=== PATIENT | female | born 1975 | race Caucasian/White ===

== ENCOUNTER 2020-11-11 09:22 | Outpatient (CLI) | payer BC ==
[2020-11-11 13:01] LABS: BASOPHILS # (AUTO) 0.1 10^3/uL (0.0-0.1); BASOPHILS % (AUTO) 0.9 %; EOSINOPHILS # (AUTO) 0.2 10^3/uL (0.0-0.7); EOSINOPHILS % (AUTO) 3.6 %; HCT - HEMATOCRIT 43.7 % (37.0-47.0); HGB - HEMOGLOBIN 14.7 g/dL (12.0-16.0); LYMPHOCYTES # (AUTO) 1.8 10^3/uL (1.5-3.5); MEAN CORPUSCULAR HEMOGLOBIN 29.9 pg (27.0-31.0); MEAN CORPUSCULAR HGB CONC 33.6 g/dL (32.0-36.0); MEAN PLATELET VOLUME 10.7 fL (7.9-10.8); MONOCYTES # (AUTO) 0.3 10^3/uL (0.0-1.0); MONOCYTES % (AUTO) 5.8 %; NEUTROPHILS # (AUTO) 3.5 10^3/uL (1.5-6.6); NEUTROPHILS % (AUTO) 59.5 %; PLT - PLATELET COUNT 360 10^3/uL (130-450); RED BLOOD COUNT 4.91 10^6/uL (4.20-5.40); RED CELL DISTRIBUTION WIDTH 13.2 % (12.0-15.0); WHITE BLOOD COUNT 5.8 x10^3/uL (4.8-10.8)
[2020-11-11 13:03] LABS: ALBUMIN 4.2 g/dL (3.2-5.5); ALBUMIN/GLOBULIN RATIO 1.4 (1.0-2.2); ALKALINE PHOSPHATASE 56 IU/L (42-121); ALT ALANINE AMINOTRANSFERASE 25 IU/L (10-60); AST ASPARTATE AMINOTRANSFERASE 24 IU/L (10-42); BILIRUBIN,TOTAL 0.6 mg/dL (0.2-1.0); BUN - BLOOD UREA NITROGEN 20 mg/dL (6-20); CALCIUM 9.5 mg/dL (8.5-10.3); CARBON DIOXIDE - CO2 27 mmol/L (21-32); CHLORIDE 102 mmol/L (101-111); CHOLESTEROL 173 mg/dL; GFR - MDRD 60 (>89); GLUCOSE 98 mg/dL (70-100); HDL CHOLESTEROL 43 mg/dL; LDL CHOLESTEROL,CALCULATED 115 mg/dL; LDL/HDL RATIO 2.7 (<4.4); POTASSIUM 4.2 mmol/L (3.5-5.0); SODIUM 137 mmol/L (135-145); TOTAL PROTEIN 7.1 g/dL (6.7-8.2); TRIGLYCERIDES 74 mg/dL; VLDL CHOLESTEROL 15 mg/dL
[2020-11-11 13:29] LABS: THYROID STIMULATING HORMONE 1.38 uIU/mL (0.34-5.60)
[2020-11-12 07:16] LABS: PROGESTERONE <0.5 ng/mL
[2020-11-12 07:32] LABS: ESTRADIOL 195 pg/mL
== END 2020-11-11 23:59 | disposition home or self-care (01) ==
LOC: LAB.WCP 09:22
PROVIDERS: ATTEND Nurse Practitioner Family
DX: Z00.00 Encounter for general adult medical examination without abnormal findings (principal); R68.82 Decreased libido
CPT/HCPCS: 36415; 80053; 80061; 82670; 83721; 84144; 84443; 85025

== ENCOUNTER 2020-11-21 14:52 | Outpatient (CLI) | payer BC ==
--- NOTE | 2020-11-22 11:43 | Mammography Report ---
BILATERAL DIGITAL SCREENING MAMMOGRAM 3D/2D: 11/21/2020 CLINICAL: Routine screening. Baseline exam. No prior exams were available for comparison. The tissue of both breasts is heterogeneously dense. T his may lower the sensitivity of mammography. There are well circumscribed asymetries likely benign cysts in both breasts. No significant masses, calcifications, or other findings are seen in either breast. IMPRESSION: BENIGN There is no mammographic evidence of malignancy. A 1 year screening mammogram is recommended. This exam was interpreted at Station ID: [id number]. NOTE: For mammograms, a report in lay terms will be sent to the patient. Approximately 15% of breast malignancies will not be visualized mammographically. In the management of a palpable breast mass, a negative mammogram must not discourage biopsy of a clinically suspicious lesion. Electronically Signed By: Sj Silver acr/:11/21/2020 16:07:29 ACR BI-RADS Category 2: Benign Finding(s) 3342F PARENCHYMAL PATTERN: (D) - The breast(s) demonstrate(s) heterogeneously dense fibroglandular jalil stafford. BI-RADS CATEGORY: (2) - 2 RECOMMENDATION: (ANNUAL) - Recommend routine annual screening mammography. [id number] 1 year screening LATERALITY: (B)
== END 2020-11-21 14:53 | disposition home or self-care (01) ==
LOC: DI.N 14:52
DX: Z12.31 Encounter for screening mammogram for malignant neoplasm of breast (principal)

== ENCOUNTER 2021-06-05 10:56 | Outpatient (CLI) | payer OTHER, BC ==
--- NOTE | 2021-06-05 15:10 | XRAY Report ---
PROCEDURE: Lumbar Spine Complete INDICATIONS: LOW BACK PAIN/STRAIN TECHNIQUE: 5 views of the lumbar spine were acquired. COMPARISON: None. FINDINGS: Bones: 5 [id number] vertebrae are present. There is trace retrolisthesis of L1 on L2, L2 on L3 , L3 on L4. There is moderate disc and mild foraminal narrowing at L5-S1. No vertebral body compressi on fractures. No suspicious bony lesions. Soft tissues: Overlying bowel gas pattern is normal. No suspicious soft tissue calcifications. IMPRESSION: Early degenerative changes most notable at L5-S1. Reviewed by: Jaelyn Wiggins MD on 06/05/2021 3:09 PM PDT Approved by: Jaelyn Wiggins MD on 06/05/2021 3:09 PM PDT Station ID: [id number]
== END 2021-06-05 23:59 | disposition home or self-care (01) ==
LOC: DI.N 10:56
PROVIDERS: ATTEND Family Medicine
DX: M47.817 Spondylosis without myelopathy or radiculopathy, lumbosacral region (principal); M47.816 Spondylosis without myelopathy or radiculopathy, lumbar region

== ENCOUNTER 2023-10-20 15:55 | Outpatient (CLI) | payer BC ==
--- NOTE | 2023-10-20 16:34 | Sleep Patient Instructions ---
Sleep Center Visit Summary - Patient Visit Information Reason for Visit: Initial consult for evaluation of sleep disordered breathing and other sleep issues. - Patient Instructions Instructions Attached: Sleep Study Home Monitor, Sleep Study Additional Instructions: You will be completing a sleep study, either an in-lab polysomnography (PSG) or home sleep study (HST). You will follow-up in the sleep care office after the sleep study is completed to hear the results and talk about therapy, if needed. You will be called by our office staff to schedule this appointment, but you may contact us with any questions. - Clinic Information Contact: [facility] [address] [place] [id number] [email or web address] T: [phone]
--- NOTE | 2023-10-20 16:38 | SLEEP CARE CONSULTATION ---
Information from patient questionnaire entered by Alcira Farfan. I have reviewed and concur with the information entered by Alcira Farfan. This document represents the service I personally performed and the decisions made by me, Kim Doan ARNP. History of Present Illness Service Date and Time: 10/20/2023 1555 Reason for Visit: New patient Chief Complaint: reports: Insomnia, Unrefreshed sleep, Snoring, Excessive daytime sleepiness, Fatigue, Frequent awakenings at night Date of Onset: A LONG TIME Usual bedtime: 10-11PM Time it takes to fall asleep: 10MINS Snores at night: Yes Observed to quit breathing while asleep: No Sleeps alone due to snoring: No Number of times waking at night: 5+ Reasons for waking at night: reports: Choking (due to reflux), Pain, Bathroom, Other (UNKNOWN). denies: Snoring, Gasping for air Toss, Turn, or Twitch while sleeping: Yes Recalls having dreams: Yes (has very vivid dreams) Usually gets out of bed at: 6-630AM; weekends 7-8 AM Feels refreshed in the morning: No Morning headache: Yes (daily; some day gone by 9-10 AM, other last all day) Sleepy or fatigued during the day: Yes (some unintentional naps) Ever fallen asleep while driving: Yes (drowsy driving; no accidents) Takes day naps: No Prior sleep studies: No Additional HPI information: I had the pleasure of seeing RAUL DENNISON today regarding the possibility of her having a sleep disorder. Her current complaints are insomnia, unrefreshed sleep, snoring, excessive daytime sleepiness, fatigue and frequent night awakenings. She says she is always tired and has a hard time staying awake on her way home from work. She is very fatigued and has not energy to do things. She used to sleep well until after her disabled daughter was born. Her daughter 5 years ago, but she is still not sleeping well. She says she is snoring. Her mother says she snores loudly. She has restless legs at night and is awakening frequently. - Parasomnia Symptoms Ever been unable to move upon waking from sleep: No (maybe, not scary) Walks in sleep: No Talks in sleep: Yes Ever acted out dreams in sleep: No Ever felt weak in the knees when startled or emotional: Yes (feels a little off balance; has not fallen to ground) Bothered by creepy, crawly, restless sensations in legs: Yes (mainly at night, most nights; more tired, sooner they start) Problems with memory or concentration: Yes (both, always had bad memory and AD HD) Subjective Initial [place] Sleepiness Scale score: 15 (10/17/29) Past Medical History Past Medical History: reports: Dysphagia, Claustrophobia, Arthritis, Anxiety, GERD, Attention deficit, Other (MIRAINES, RESTLESS LEGS, URINARY INCONTINENCE) Social History 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 Patient is and lives in [place]. Have you smoked in the past 12 months: No Alcohol use: Yes Alcohol amount and frequency: OCASSIONALLY Caffeine use: Yes Caffeine amount and frequency: 1 1-2 X WEEK Family History Family history of sleep disordered breathing: Yes Family Hx Sleep Apnea: Mother: Snoring, Father: Snoring Allergies and Home Medications Known drug allergies: No Drug allergies reviewed: Yes Home medication list reviewed: Yes (as listed) Allergy and home medication list: Home Medications Medication Instructions Recorded Confirmed Last Taken Type Ergocalciferol (Vitamin D2) See Rx Instructions .ROUTE .COMPLEX 10/20/23 10/20/23 Unknown History [Drisdol] Mecobalamin [B12 Active] See Rx Instructions .ROUTE .COMPLEX 10/20/23 10/20/23 Unknown History Melatonin/Pyridoxine [Melatonin 5 See Rx Instructions .ROUTE .COMPLEX 10/20/23 10/20/23 Unknown History mg Tablet] Meloxicam See Rx Instructions .ROUTE .COMPLEX 10/20/23 10/20/23 Unknown History Norethindrone-E.estradiol-Iron See Rx Instructions .ROUTE .COMPLEX 10/20/23 10/20/23 Unknown History [Brody 24 Fe 1 mg-20 Mcg Tablet] Omeprazole Magnesium See Rx Instructions .ROUTE .COMPLEX 10/20/23 10/20/23 Unknown History Ondansetron [Ondansetron Odt] See Rx Instructions .ROUTE .COMPLEX 10/20/23 10/20/23 Unknown History Propranolol HCl [Inderal Xl] See Rx Instructions .ROUTE .COMPLEX 10/20/23 10/20/23 Unknown History Tolterodine Tartrate [Tolterodine See Rx Instructions .ROUTE .COMPLEX 10/20/23 10/20/23 Unknown History Tartrate ER] Venlafaxine [Effexor] See Rx Instructions .ROUTE .COMPLEX 10/20/23 10/20/23 Unknown History Viloxazine HCl [Qelbree] See Rx Instructions .ROUTE .COMPLEX 10/20/23 10/20/23 Unknown History hydrOXYzine HCL [Hydroxyzine HCl] See Rx Instructions .ROUTE .COMPLEX 10/20/23 10/20/23 Unknown History rOPINIRole [Requip] See Rx Instructions .ROUTE .COMPLEX 10/20/23 10/20/23 Unknown History traZODone [Desyrel] See Rx Instructions .ROUTE .COMPLEX 10/20/23 10/20/23 Unknown History Review of Systems Weight loss over past 5 years: 40 Cardiovascular: denies: high blood pressure Respiratory: denies: shortness of breath Gastrointestinal: reports: heartburn, difficulty swallowing, nausea, diarrhea, abdominal pain Urinary: reports: incontinence Neurological: reports: headaches, gait or balance problems, other (DIZZINESS). denies: head trauma Psychiatric: reports: Attention Deficit Hyperactivity, anxiety, claustrophobia Ear/Nose/Throat: reports: dry mouth/throat, wisdom teeth removed. denies: injury to nose, tonsillectomy Endocrine: reports: sluggishness Musculoskeletal: reports: joint pain, back pain, muscle pain or cramping, mobility problems Physical Exam Vital signs obtained and entered by: ALCIRA Woods MA Blood Pressure: 116/77 (RIGHT) Cuff size: wrist Heart Rate: 71 O2 Saturation: 100 Height: 5 ft 4 in Weight: 245 lb 12.8 oz Body Mass Index: 42.2 BMI Classification: Morbidly Obese Neck circumference: 18 Mouth and throat: narrow oropharynx Soft palate: long Hard palate: normal Uvula: normal Uvula visualization: 25% Mallampati Class III Tongue: enlarged in size with teeth ceron on lateral edges Tonsils: 1+ Neck: normal w/o lymphadenopathy or thyromegaly Heart: regular rate and rhythm Lungs: clear bilaterally Impression and Plan 1. Suspected Obstructive Sleep Apnea-Hypopnea Syndrome, as suggested by a history of loud and irregular snoring, gasping or choking in sleep, morning headache, frequent awakening during the night, unrefreshed sleep, cognitive impairment, and excessive daytime sleepiness. Narrow oropharynx and obesity are common predisposing factors for obstructive sleep apnea-hypopnea syndrome. I recommend proceeding to polysomnography to confirm the diagnosis and to assess severity. If the patient has significant sleep disordered breathing, a manual CPAP titration study will also be performed to find the optimal treatment pressure. I informed the patient of what the sleep studies involve and after some discussion, obtained agreement to proceed. The pathophysiology of obstructive sleep apnea-hypopnea syndrome was discussed with the patient and health risks of cardiovascular and cerebrovascular disease if not treated. Risks of drowsy driving discussed in detail and patient advised to avoid long distance driving and to assembler for puller over hand at the first sign of drowsiness. Patient agreed to plan. * Schedule polysomnography. * Avoid long distance driving or driving when feeling sleepy. * Avoid alcohol, sedative and muscle relaxant around bedtime. * Attempt to lose weight. * Review instructions provided by trained office staff on how to prepare for the sleep study. * Return for follow-up after sleep study completed. Counseling Topics: Weight loss health impact Plan: PSG/HST Visit Type: In Office Time Spent with Patient (minutes): 30 Provider Statement: I spent 100% of the Face to Face Visit with the patient with greater than 50% spent counseling the patient and coordination of care.
[2023-10-20 16:45] VITALS: BP 116/77; O2SAT 100
== END 2023-10-20 15:56 | disposition home or self-care (01) ==
LOC: SC 15:55
PROVIDERS: ATTEND Nurse Practitioner Family
DX: G47.00 Insomnia, unspecified (principal); R06.83 Snoring; G47.10 Hypersomnia, unspecified; R53.83 Other fatigue; G47.8 Other sleep disorders; E66.01 Morbid (severe) obesity due to excess calories; Z68.41 Body mass index [BMI] 40.0-44.9, adult
CPT/HCPCS: 99203; 99212

== ENCOUNTER 2023-11-26 14:04 | Outpatient (CLI) | payer BC ==
--- NOTE | 2023-11-26 13:51 | Sleep Patient Instructions ---
Sleep Center Visit Summary - Patient Visit Information Reason for Visit: Sleep study followup - Patient Instructions Instructions Attached: Apnea Sleep Mouthpieces Additional Instructions: You have opted for an oral mandibular appliance to control your sleep apnea. A list of certified dentists in the area was provided for you to find a dentist to have your oral appliance made. Once you have the device, please call and make a follow up appointment. We need to see you after you have been using the appliance for a month. We will evaluate your response to therapy and order a follow up sleep study to check efficiency of treatment. Please call office to schedule a follow up appointment in the sleep care office one month after obtaining new device. - Clinic Information Contact: [facility] [address] [place] [address] [email or web address] T: [phone]
--- NOTE | 2023-11-26 13:59 | SLEEP CARE CONSULTATION ---
Information from patient questionnaire entered by Alcira Farfan. I have reviewed and concur with the information entered by Alcira Farfan. This document represents the service I personally performed and the decisions made by me, Kim Doan ARNP. History of Present Illness Service Date and Time: 11/26/2023 1320 Initial [place] Sleepiness Scale score: 15 (10/17/29) Current [place] Sleepiness Scale score: 18 (11/26/23) Additional HPI information: RAUL DENNISON returns via video appointment for follow up and results of the recently performed polysomnography. The sleep study showed mild obstructive sleep apnea with an average AHI of 5.9 and rodger oxygen saturation of 86%. She had mild PLMs not contributing to sleep fragmentation. I explained the pathophysiology behind obstructive sleep apnea. We then spent quite a bit of time discussing different treatment options. For mild obstructive sleep apnea, surgery and oral appliance are alternatives to nasal CPAP therapy but in moderate or severe cases, nasal CPAP is the most effective and reliable treatment. Because apnea is primarily in supine position, then positional management therapy could be effective. Methods discussed such as positioning with pillows, using a T-shirt with tennis balls in the back or commercial products that have a pillow format on back to prevent supine sleep. I reviewed the impact of weight changes on sleep apnea and strongly recommended losing weight. After some discussion, the patient opted to try the oral appliance. She does not feel she could tolerate a mask on her face. Patient counseled not drink alcohol less than 4 hours before bedtime as it can increase snoring and apnea. Patient was cautioned about risks of drowsy driving until sleepiness symptoms resolve. Patient denies drowsy driving. Sleep Study - Results Type of Sleep Study: Polysomnography (COMPLETED 11/20/2023) Prior sleep studies: No Polysomnography/Home Sleep Study results: IMPRESSION: The quality of the study is good. The patient had normal sleep efficiency. The sleep architecture was abnormal for sleep fragmentation and reduced amount of time spent in REM sleep. Respiratory monitoring showed mild obstructive sleep apnea-hypopnea (AHI = 5.9) associated with frequent arousals, oxyhemoglobin desaturation and mild hypoxia (rodger oxygen saturation of 86%). The respiratory events occurred almost exclusively during supine sleep (supine AHI = 8.6; non-supine = 1.79). Snore was light to moderate in intensity. There was mild periodic leg movement of sleep not contributing to the sleep fragmentation. Cardiac rhythm was normal sinus rhythm without significant arrhythmia. No abnormal behavior (parasomnia) observed during the night. Allergies and Home Medications Known drug allergies: No Drug allergies reviewed: Yes Home medication list reviewed: Yes (as listed) Allergy and home medication list: Allergies No Known Drug Allergies Allergy (Verified 11/25/23 13:32) Home Medications Medication Instructions Recorded Confirmed Last Taken Type Ergocalciferol (Vitamin D2) See Rx Instructions .ROUTE .COMPLEX 10/20/23 11/26/23 Unknown History [Drisdol] Mecobalamin [B12 Active] See Rx Instructions .ROUTE .COMPLEX 10/20/23 11/26/23 Unknown History Melatonin/Pyridoxine [Melatonin 5 See Rx Instructions .ROUTE .COMPLEX 10/20/23 11/26/23 Unknown History mg Tablet] Meloxicam See Rx Instructions .ROUTE .COMPLEX 10/20/23 11/26/23 Unknown History Norethindrone-E.estradiol-Iron See Rx Instructions .ROUTE .COMPLEX 10/20/23 11/26/23 Unknown History [Brody 24 Fe 1 mg-20 Mcg Tablet] Omeprazole Magnesium See Rx Instructions .ROUTE .COMPLEX 10/20/23 11/26/23 Unknown History Ondansetron [Ondansetron Odt] See Rx Instructions .ROUTE .COMPLEX 10/20/23 11/26/23 Unknown History Propranolol HCl [Inderal Xl] See Rx Instructions .ROUTE .COMPLEX 10/20/23 11/26/23 Unknown History Venlafaxine [Effexor] See Rx Instructions .ROUTE .COMPLEX 10/20/23 11/26/23 Unkn own History Viloxazine HCl [Qelbree] See Rx Instructions .ROUTE .COMPLEX 10/20/23 11/26/23 Unknown History hydrOXYzine HCL [Hydroxyzine HCl] See Rx Instructions .ROUTE .COMPLEX 10/20/23 11/26/23 Unknown History rOPINIRole [Requip] See Rx Instructions .ROUTE .COMPLEX 10/20/23 11/26/23 Unknown History traZODone [Desyrel] See Rx Instructions .ROUTE .COMPLEX 10/20/23 11/26/23 Unknown History Review of Systems Review of systems same as previous: Yes (NO CHANGE) Physical Exam Vital signs obtained and entered by: ALCIRA Woods MA Height: 5 ft 5 in (PER PT) Weight: 230 lb (PER PT) Body Mass Index: 38.2 BMI Classification: Obese Impression and Plan 1. Obstructive Sleep Apnea-Hypopnea Syndrome, mild, with lowest oxygen saturation of 86%. Obviously this is the cause of the patients symptoms of unrefreshed sleep, and excessive daytime sleepiness. Positive pressure therapy could benefit anxiety, gastric reflux, attention deficit, migraines and RLS. As mentioned above, the patient chose an oral appliance to treat their apnea. A 3 month follow up will be made to see if appliance has reduced symptoms. If so, another polysomnography will be ordered with use of the oral appliance to check efficacy in reducing apnea. Until patient is able to use the oral appliance, positional therapy is advised to avoid supine sleep with pillow positioning or one of the commercial products because apnea is more severe supine. 2. Hypoxemia, mild, with a rodger oxygen saturation of 86% and 1.6 minutes spent under 90%. The baseline oxygen saturation was normal with an average oxygen saturation of 93%. 3. Periodic limb movement, mild, that did not fragment patients sleep. Periodic limb movement of sleep (PLMS) is characterized by episodes of repetitive limb movements that occur during sleep and usually involve the lower limbs. The etiology is unknown. Sleep hygiene methods can also improve sleep as well as lifestyle changes such as regular exercise. Patient was advised that no treatment is needed at this time. If symptoms increase, then further evaluation is indicated. 4. Obesity, unspecified. Currently patients BMI is 38.2. Obesity increases the risk of apnea, CPAP pressure requirements and overall health risks especially cardiovascular and diabetes. Thus patient is advised to lose weight. * Oral Appliance. * Attempt to lose weight. * Avoid alcohol consumption near bedtime. * Avoid supine sleep until using oral appliance. * The patient is again cautioned about driving until sleepiness completely resolves. * Return one month after oral appliance obtained. I will assess response to therapy at that time. Counseling Topics: Sleeping position, Weight loss health impact Prescriptions: Other (Oral Appliance) Follow up with Sleep Care in: other (after obtaining oral appliance) Visit Type: Telehealth Video Video Type: Doximity Patient Location: Work Location of Provider: Office Patient agrees and consents to this telehealth visit type: Yes Time Spent with Patient (minutes): 24 Provider Statement: I spent 100% of the Telehealth Video Call with the patient with greater than 50% spent counseling the patient and coordination of care.
== END 2023-11-26 14:05 | disposition home or self-care (01) ==
LOC: SC 14:04
PROVIDERS: ATTEND Nurse Practitioner Family
DX: G47.33 Obstructive sleep apnea (adult) (pediatric) (principal); R09.02 Hypoxemia; G47.61 Periodic limb movement disorder; E66.9 Obesity, unspecified; Z68.38 Body mass index [BMI] 38.0-38.9, adult

== ENCOUNTER 2024-06-02 09:29 | Outpatient (CLI) | payer BC | END 2024-06-02 09:30 | disposition short-term general hospital (02) | LOC: EMS 09:29 | DX: R55 Syncope and collapse (principal) | CPT/HCPCS: A0425; A0427 ==